=== PATIENT | female | born 1985 | race African-American/Black ===

== ENCOUNTER 2017-04-19 07:19 | Emergency (ER) | payer SELFPAY ==
[~2017-04-19] VITALS: Ht 162.6 cm; Wt 154.2 kg
--- NOTE | 2017-04-19 07:51 | NUR ---
PT REC'D TO ER C.ON/V FOR 1 WEEK PT STTED TAKING IRON. AND IS ANEMIC . STED WEAK AWAITING EVALUATION BY ER PROVIDER.
[2017-04-19] MEDS ORDERED: FAMOTIDINE/PF INJ 20 MG/2 ML VIAL IV ONE ×2 (08:00→08:14)
[2017-04-19] MEDS ORDERED: ONDANSETRON HCL/PF 4 MG/2 ML VIAL IVP ONE (08:00)
[2017-04-19] MEDS ORDERED: IV NS 0.9% 1,000 ML BAG IV ONE (08:00)
[2017-04-19] MEDS ORDERED: ONDANSETRON HCL/PF 4 MG/2 ML VIAL ONE (08:14)
--- NOTE | 2017-04-19 08:18 | NUR ---
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 PLAYING WITH HER PHONE . BEHAVIOR IS OFF. PT STTED SHE WAS NAUSEAOUS FOR 1 WEEK BUT WHEN RN TOLD HER SHE WAS GIVING MEDS FOR HER NAUSEA . THE PT QUESTIONED THE RN WHY AM I GIVING HER MEDS .
[2017-04-19 08:24] LABS: BASOPHILS % (AUTO) 0.2 % (0.0-2.0); EOSINOPHILS # (AUTO) 0.1 /CMM (0.0-0.7); EOSINOPHILS % (AUTO) 2.1 % (0.0-6.0); HEMATOCRIT 37 % (33-45); LYMPHOCYTES % (AUTO) 18.3 % (20.0-44.0); MEAN CORPUSCULAR HEMOGLOBIN 27 PG (26.0-33.0); MEAN CORPUSCULAR HGB CONC 33 g/dl (31.0-36.0); MEAN CORPUSCULAR VOLUME 84 fL (82-100); MONOCYTES # (AUTO) 0.3 /CMM (0.1-1.30); NEUTROPHILS # (AUTO) 4.2 /CMM (1.8-8.9); NEUTROPHILS % (AUTO) 74.4 % (43.0-81.0); PLATELET COUNT (AUTO) 225 /CMM (150-450); RDW COEFFICIENT OF VARIATION 14.5 (11.5-15.0); RED BLOOD CELL COUNT(AUTO) 4.39 MIL/uL (4.0-5.2); WHITE BLOOD COUNT (AUTO) 5.6 K/uL (4.3-11.0)
--- NOTE | 2017-04-19 08:32 | NUR ---
PT UP AMB TO BR VOIDED UA SENT TO LAB. BACK TO BED
[2017-04-19 08:36] LABS: CALCIUM, SERUM 8.3 mg/dL (8.5-10.1); CREATININE 0.7 mg/dL (0.6-1.3)
[2017-04-19 08:39] LABS: INR 0.91 (0.87-1.13); PROTHROMBIN TIME 9.7 SECS (9.5-12.7)
[2017-04-19 09:18] LABS: ALBUMIN 3.2 g/dL (3.4-5.0); BILIRUBIN,DIRECT 0.1 mg/dL (0.0-0.2); BILIRUBIN,TOTAL 0.4 mg/dL (0.2-1.0); TOTAL PROTEIN, SERUM 6.2 g/dL (6.4-8.2)
--- NOTE | 2017-04-19 09:25 | NUR ---
CALLED LAB TO F/U ON UA RESULTS. PER CLS, 10 MORE MINUTES. NOTIFIED.
[2017-04-19 09:28] LABS: APPEARANCE,URINE CLEAR (CLEAR); BILIRUBIN,URINE NEGATIVE (NEGATIVE); BLOOD, URINE NEGATIVE Ery/uL (NEGATIVE); KETONES,URINE NEGATIVE (NEGATIVE); LEUKOCYTE ESTERASE ,URINE NEGATIVE (NEGATIVE); NITRITE, URINE NEGATIVE (NEGATIVE); PROTEIN,URINE NEGATIVE (NEGATIVE); UGLUCOSE NEGATIVE (NEGATIVE); UROBILINOGEN,URINE 0.2 EU/dL (0.2)
[2017-04-19 09:29] LABS: COLOR,URINE STRAW (YELLOW)
[2017-04-19 09:30] LABS: PREGNANCY TEST URINE QUAL NEGATIVE (NEGATIVE)
--- NOTE | 2017-04-19 09:50 | NUR ---
IV removed. Catheter intact and site benign. Pressure and 4x4 applied to site. No bleeding noted.
--- NOTE | 2017-04-19 09:53 | NUR ---
DCPatient discharged to home in stable condition. Written and verbal after care instructions given. Patient verbalizes understanding of instruction.
[2017-04-19 10:01] VITALS: BP 138/69
--- NOTE | 2017-04-19 10:02 | NUR ---
PT. VERBALIZED UNDERSTANDING OF AFTERCARE INSTRUCTIONS.IV removed. Catheter intact and site benign. Pressure and 4x4 applied to site. No bleeding noted.Patient discharged to home in stable condition. Written and verbal after care instructions given. Patient verbalizes understanding of instruction.
== END 2017-04-19 10:02 | disposition home or self-care (01) ==
LOC: ER 07:22
DX: R11.2 Nausea with vomiting, unspecified (principal); D50.9 Iron deficiency anemia, unspecified
CPT/HCPCS: 36415; 80048; 80076; 81001; 83690; 84703; 85025; 85730; 96361; 96374; 96375; 99284; A4606; J2405; J3490; J7030; Z7610; 81000-TC